=== PATIENT | male | born 1940 | race Caucasian/White ===

== ENCOUNTER 2016-05-21 12:34 | Outpatient (CLI) | payer OTHER ==
--- NOTE | 2016-05-21 13:53 | DIAGNOSTIC IMAGING REPORT ---
PROCEDURE: CT ABDOMEN/PELVIS W/O CONTRAST INDICATION: Hematuria x 7 hours, initial encounter TECHNIQUE: Noncontrast axial images were obtained of the entire abdomen and pelvis with sagittal and coronal reformations. COMPARISON: None. FINDINGS: ABDOMEN: There are two punctate right and 3 left (1 - 2.5 mm) nonobstructing renal calculi. Normal ureters. Liver measures 17 cm with nodular contour and inhomogeneous appearance consistent with cirrhosis. No evidence of a hepatic mass. Several gallstones present. Pancreas, spleen, and adrenal glands are normal. Mild atherosclerosis of the aorta. Normal appendix stool throughout the large bowel. PELVIS: 3.7 x 1.5 cm sessile mass with coarse peripheral calcification along the right posterior aspect of the bladder. Mild enlargement of the prostate. Severe sigmoid diverticulosis. No inflammatory changes or free fluid. Small right inguinal hernia containing fat and vessels. Small fat-containing left inguinal hernia. Moderate degenerative changes of the lower facets. IMPRESSION: 1. 3.7 x 1.5 cm sessile soft tissue mass with peripheral calcifications along the right posterior aspect of the bladder. This is suspicious for a neoplasm. Chronic clot less likely. Recommend cystoscopy 2. Bilateral nonobstructing renal calculi 3. Cirrhosis 4. Cholelithiasis 5. Moderate descending and severe sigmoid colon diverticulosis 6. Results discussed with SIV[facility] Robled[place] All CT scans at this facility use dose modulation, iterative reconstruction, and/or weight-based dosing when appropriate to reduce radiation dose to as low as reasonably achievable.
== END 2016-05-21 23:00 ==
LOC: CT SRH 12:34
DX: N20.0 Calculus of kidney (principal); M79.9 Soft tissue disorder, unspecified; K74.60 Unspecified cirrhosis of liver; K80.20 Calculus of gallbladder without cholecystitis without obstruction; K57.30 Diverticulosis of large intestine without perforation or abscess without bleeding